=== PATIENT | female | born 1935 | race Caucasian/White ===

== ENCOUNTER 2019-05-25 12:27 | Inpatient (IN) ==
--- NOTE | 2019-05-25 13:16 | PROVIDER DOCUMENTATION ---
HPI-General Adult - General Chief Complaint: Hip Injury Stated Complaint: fall, hip pain Time Seen by Provider: 05/25/19 12:34 Source: patient Allergies/Adverse Reactions: Patient Allergies Allergy/AdvReac Type Severity Reaction Status Date / Time No Known Allergies Allergy Verified 10/12/16 20:31 Home Medications: Home Medication List Medication Instructions Recorded Confirmed Last Taken Type Cephalexin [Keflex] 500 mg PO BID #14 capsule 10/12/16 Unknown Rx - History of Present Illness -Gen Adult Nature of Presenting Problems: Pt. is 83 yof that presents with c/o tripping and falling this morning. Pt. rep orts pain to the left hip. She denies any other injury and denies taking any blood thinners. Location of Pain/Injury: reports: pelvis (Left hip). denies: none, head, face, mouth, neck, chest, upper extremity, hand(s), abdomen, back, genitalia, lower extremity, feet, upper body, lower body, generalized, other Pain Radiation: reports: no radiation. denies: arm(s), back, buttocks, chest, epigastric, feet, groin, jaw, flank (L), legs (lower), LLQ, LUQ, neck, periumbilical, flank (R), RLQ, RUQ, shoulder(s), scapula, scrotal, sternal notch, suprapubic, legs (upper), urethral, vaginal, other Quality of Pain: reports: aching. denies: burning, pressure, tightness Severity: reports: moderate. denies: mild, severe Onset/Duration: reports: abrupt, just prior to arrival Timing: reports: still present. denies: improving, intermittent, getting worse Context/Activities at Onset: reports: light activity, recent trauma history. denies: none, moderate activity, vigorous activity, recent emotional stress, recent physical stress, possible bad food, cold exposure, eating, out of country travel, rest, sleep, sexual activity, other Modifying Factors: improves with: immobilization. worse with: movement, palpation Associated Symptoms: reports: joint pain (Left hip). denies: denies symptoms, anxiety, arm pain, back/neck pain, chest pain, constipation, cough, diaphoresis, diarrhea, dizziness, EENT symptoms, fatigue, fever/chills, genitourinary problems, headaches, heartburn, loss of appetite, malaise, muscle aches, sinus congestion/drainage, nausea, rash, seizure, shortness of breath, sensory/motor loss, pain with inspiration, swelling/mass in abdomen, syncope, vomiting, weakness, trouble walking, other Similar Symptoms Previously?: No Recently seen or treated by another doctor?: No Review of Systems - Adult - REVIEW OF SYSTEMS - ADULT Constitutional: reports: no symptoms reported Eyes: reports: no symptoms reported Ears, Nose, Mouth & Throat: reports: no symptoms reported Cardiovascular: reports: no symptoms reported Respiratory: reports: no symptoms reported Gastrointestinal: reports: no symptoms reported Genitourinary: reports: no symptoms reported Musculoskeletal: reports: see HPI, joint pain (Left hip). denies: back pain, joint swelling, neck pain Integumentary: reports: no symptoms reported Neurological: reports: no symptoms reported Psychiatric: reports: no symptoms reported Past History - Adult - PAST MEDICAL HISTORY-ADULT Review of Records: reports: Old Records Reviewed, Nursing Assessment Review, Medications Reviewed, Social history reviewed & non-contributory. - IMMUNIZATION STATUS Childhood Immunizations: See Nurse Assessment Flu Vaccine: See Nurse Assessment - FAMILY HISTORY Family History: reviewed, not pertinent - SOCIAL HISTORY Smoking: denies Physical Exam-General - PHYSICAL EXAM-ADULT Initial Vital Signs Reviewed: Yes - CONSTITUTIONAL General Appearance: alert, mild distress. negative: anxious, obtunded, combative - EYES Eyes: PERRL/EOMI, pink conjunctivae - HEAD, EARS, NOSE, MOUTH & THROAT HENMT: normocephalic/atraumatic, moist mucous membranes - NECK Neck: non-tender, full range of motion, supple, normal inspection - RESPIRATORY Respiratory: lungs clear, normal breath sounds - CARDIOVASCULAR Cardiovascular: normal peripheral pulses, regular rate, rhythm, no edema - GASTROINTESTINAL (ABDOMEN) Abdominal Exam: normal bowel sounds, non tender, soft - LYMPHATIC Lymphatic: no adenopathy - MUSCULOSKELETAL Back Exam: normal inspection, no CVA tenderness, no vertebral tenderness Extremity: tenderness (Left hip with left leg shortened without rotation.). negative: erythema, inflammation, swelling Peripheral Pulses: radial (R): 2+, radial (L): 2+ - SKIN Integumentary: normal color, normal turgor, warm/dry - NEUROLOGIC Neurologic: grossly normal, no motor/sensory deficits - PSYCHIATRIC Psych/Mental Status: normal mood/affect, normal thought content, normal thought process, oriented x 3. negative: anxious, paranoid, tearful Progress - PLAN OF CARE/RESULTS Progress/Plan/Lab Results: Vital Signs - 8 hr 05/25/19 12:43 Temperature 97.5 F L Pulse Rate 99 H Respiratory Rate 18 Blood Pressure 163/79 O2 Sat by Pulse Oximetry 88 L Orders Category Date Time Status CHEST-1 VIEW [RAD] Stat Exams 05/25/19 13:12 Ordered XRAY PELVIS W/HIP 2-3VW LT [RAD] Stat Exams 05/25/19 12:38 Ordered Result Diagrams: 05/25/19 14:20 05/25/19 14:20 - XRAY 1 XRAY: Left XRAY Study: Pelvis, Hip ([facility] - [address], [address], [place] [address] [facility] - [address] [place] [address] Department of Imaging Patient: SAVANNA MCGHEE Date: 05/25/19#: [id number] : 1936ADM Status: PRE ERAcct#: [id number] Age/Sex: 83/FRoom/Bed: Loc: ED Ordering Physician: Anuel Wellington Family Physician: Stacy Logan MD Reason for Procedure: Fall with injury Signed EXAM: XRAY PELVIS W/HIP 2-3VW LT 05/25/2019 HISTORY: Fall with injury TECHNIQUE: AP pelvis and left hip two views COMMENT: There is a fracture of the femoral neck on the left. This was not the case on 04/17/2019. No other acute bony abnormalities are present. IMPRESSION: Fracture left femoral neck. Electronically signed by Pedro Arshad 05/25/2019 1:32 PM 05/25/19 1332 Interpreting Physician: Pedro Arshad MD Dictated Date/Time: 05/25/19 1331 cc: Anuel Wellington; Stacy Logan MD) XRAY Interpretation: See note - CONSULTS/PCP/HOSPITALIST Notification #1 *Consult/PCP/Hospitalist*: Dr. Mccracken Time Discussed: 13:44 Reason/Comments: Consult Consult Disposition: other (Admit to hospitilist and NPO after midnight.) #2 Consult: Diana for Hospitilist Time Discussed: 15:18 Reason/Comments: Admission Consult Disposition: Will see in ED, Admit Departure - Departure Date of Disposition Decision: 05/25/19 Time of Disposition Decision: 13:38 DIAGNOSIS: Renal insufficiency Hip fracture Qualifiers: Encounter type: initial encounter Fracture type: closed Laterality: left Qualified Code(s): S72.002A - Fracture of unspecified part of neck of left femur, initial encounter for closed fracture Disposition: ADMITTED INPATIENT 09 Certified Medical Emergency: Emergent Condition: Stable Referrals and Follow-Ups: Stacy Logan MD [Primary Care Provider] - - Critical Care Note This patient required my direct & personal management of CC.: No Attestation - Physician/ BLADE Attestation Patient care was provided by Advanced Practice Provider:: Yes Advanced Practice Provider:: Anuel Wellington Advanced Practice Provider documentation review:: The Mid-level provider documentation, treatment plan and medical decision making was reviewed by the physician who agrees with all treatment and medical decision making by the P. The physician spent face to face time with patient:: No Advanced Practice Provider documentation review:: Supervising physician onsite and consulted in the evaluation and care of this patient. The physician did not have a face to face encounter with the patient.
--- NOTE | 2019-05-25 13:34 | Diag Imaging Result Doc PS360 ---
EXAM: XRAY PELVIS W/HIP 2-3VW LT 05/25/2019 HISTORY: Fall with injury TECHNIQUE: AP pelvis and left hip two views COMMENT: There is a fracture of the femoral neck on the left. This was not the case on 04/17/2019. No other acute bony abnormalities are present. IMPRESSION: Fracture left femoral neck. Electronically signed by Pedro Arshad 05/25/2019 1:32 PM
--- NOTE | 2019-05-25 13:41 | Diag Imaging Result Doc PS360 ---
EXAM: CHEST-1 VIEW 05/25/2019 HISTORY: low 02 sat TECHNIQUE: AP portable semiupright at 1333 COMMENT: There is COPD. There are ill-defined opacities in both upper lobes. The heart size is slightly enlarged and the pulmonary vascularity is prominent. There is a granuloma in the lingula. There are no previous studies. IMPRESSION: The possibility of mild bronchopneumonia cannot be excluded. COPD. Electronically signed by Pedro Arshad 05/25/2019 1:39 PM
[2019-05-25] MEDS ORDERED: ZOFRAN IV ONE (13:44)
[2019-05-25] MEDS ORDERED: MORPHINE IV ONE (13:44)
[2019-05-25 14:47] LABS: BASO# 0.01 X1000 (0.0-0.2); BASO% 0.1 % (0.0-0.8); EOS# 0.01 X1000 (0.0-0.7); EOS% 0.1 % (0.0-10.0); HEMATOCRIT 46.7 % (37.0-47.0); HEMOGLOBIN 15.4 g/dL (12.0-16.0); LYMPH% 7.2 % (20.5-51.1); MCH 28.3 PG (27-31); MCV 85.7 FL (81-99); MONO# 0.69 X1000 (0.11-0.59); MONO% 5.5 % (1.7-9.3); MPV 10.4 FL (7.4-10.4); NEUT# 10.97 X1000 (1.4-6.5); NEUT% 87.1 % (42.2-75.2); PLT 160 X1000 (130-400); RBC 5.45 XMIL (4.2-5.4); RDW 14.6 % (11.5-14.5); WBC 12.58 X1000 (4.8-10.8)
[2019-05-25 14:48] LABS: PROTIME 13.3 Seconds (11.0-16.0)
[2019-05-25 14:49] LABS: PTT 27.9 Seconds (22.3-41.8)
[2019-05-25 14:58] LABS: ALB/GLOB RATIO 1.4; CALCIUM 9.3 mg/dL (8.8-10.2); CREATININE 1.1 mg/dL (0.5-0.9); POTASSIUM 5.2 mmol/L (3.5-5.1); TOTAL BILIRUBIN 0.87 mg/dL (0.20-1.00); TOTAL PROTEIN 6.9 g/dL (6.3-8.3)
[2019-05-25 15:02] LABS: URINE SOURCE CATH
[2019-05-25 15:04] LABS: BILIRUBIN URINE NEGATIVE (NEGATIVE); BLOOD URINE TRACE (NEGATIVE); COLOR YELLOW; GLUCOSE URINE NEGATIVE (NEGATIVE); KETONE URINE NEGATIVE (NEGATIVE); LEUKOCYTES URINE NEGATIVE (NEGATIVE); NITRITE URINE NEGATIVE (NEGATIVE); PROTEIN URINE TRACE mg/dL (NEGATIVE); SP GRAVITY URINE 1.018; TURBIDITY URINE CLEAR (CLEAR); UR EPITHELIAL CELLS <10 /HPF (<10); URINE BACTERIA 1+ /HPF; URINE RBC <10 /HPF (<10); URINE WBC <10 /HPF (<10); UROBILINOGEN URINE NORMAL (NORMAL)
[2019-05-25] MEDS ORDERED: NS 1,000 ML IV SCH (15:15)
[2019-05-25 15:18] LABS: CK INDEX 2.8 (0.0-2.5); CK-MB 5.1 ng/mL (0.0-5.0)
[2019-05-25] MEDS ORDERED: ZOFRAN IV PRN (15:29)
[2019-05-25] MEDS ORDERED: TYLENOL PO PRN (15:29)
--- NOTE | 2019-05-25 17:35 | Diag Imaging Result Doc PS360 ---
EXAM: CT THORAX W/O CONTRAST 05/25/2019 HISTORY: possible bronchopneumonia TECHNIQUE: This exam was performed using automated exposure control, adjustment of mA or kV according to patient size, and/or use of iterative reconstruction technique. COMMENT: There are nonspecific mediastinal nodes. There our calcified nodes in the left hilum. There is extensive coronary calcification. There is a pericardial effusion measuring 7 to 8 mm in thickness anteriorly. There is a hiatal hernia. There is a very small left pleural effusion. There is scoliosis of the thoracic spine with convexity to the right. There is bullous emphysema. There is atelectasis versus fibrosis in the right middle lobe and to some extent in the lingula. The right middle lobe is largely collapsed. This may be chronic. IMPRESSION: COPD. Atelectasis of the right middle lobe. Electronically signed by Pedro Arshad 05/25/2019 5:32 PM
[2019-05-25] MEDS: MORPHINE IV PRN (18:53)
[2019-05-25] MEDS: NS 1,000 ML IV SCH (18:53)
--- NOTE | 2019-05-25 21:07 | HISTORY AND PHYSICAL ---
ADDENDUM: I have seen and examined Ms. Michaud today. Ms. Michaud is an 83-year-old female who has no apparent chronic medical conditions, presented to the emergency room after she sustained a mechanical fall entangling her feet at the bathroom, fell and sustained a trauma to the left hip. She was not immediately able to get up. She laid down until her [id number] came to see her today. Upon presenting to the emergency room, she was found to be quite dry on the mucous membrane and upon presenting to the emergency room investigations including an x-ray of the hip showed a fracture to the left femoral neck. The patient is being admitted for further medical and orthopedic intervention. CURRENT VITALS: Have been reviewed. Blood pressure is 150/69, pulse of 81, respirations 19, temperature 98.0 degrees. PHYSICAL EXAM: GENERAL: Is positive for an elderly lady. BMI is 19.7. She does not look to be in any distress. HEENT: Mucosa is pink, slightly dry. Anicteric. Acyanotic. NECK: Neck is supple. CHEST: Good air entry bilaterally. There was no crepitations. No rhonchi. CARDIOVASCULAR: Regular rate and rhythm. ABDOMEN: Is soft, minimally distended in the lower abdomen. There is an old infraumbilical surgical scar. Bowel sounds present. EXTREMITIES: No pedal edema. DEVELOPMENT EDITOR: Patient is awake, alert, oriented. MUSCULOSKELETAL: The left lower extremity is externally rotated, slightly shorten. It is tender to mobilized. LABORATORY DATA: Has also been reviewed. She has a hemoglobin of 15.4. I think she is probably slightly hemoconcentrated. BUN is 27, creatinine is 1.7, and potassium is 5.2. IMAGING STUDIES: Have been reviewed. ASSESSMENT: 1. Status post mechanical fall resulting into trauma to the left hip, which resulted into a left femoral neck fracture. The patient is going to be admitted for Orthopedics to evaluate and intervene if necessary. 2. Clinical volume depletion. 3. Acute kidney injury, most likely from intravascular depletion. 4. Suspected undiagnosed asymptomatic chronic obstructive pulmonary disease. 5. Remote history of previous smoking habit. PERIOPERATIVE EVALUATION: Ms. Michaud is 83 years old. No cor morbidities except possible undiagnosed and asymptomatic COPD. Chest x-ray does not show any acute abnormalities. I have not seen any EKG. Laboratory data have all been reviewed. She denies any chronic heart, lung, kidney or liver disease and she is not on any blood thinner. We think Ms. Michaud is a moderate risk patient for a moderate risk nonvascular intervention. I think the surgery is eminent to preserve her functionality. We recommend surgery to proceed if her EKG is unremarkable. Please refer to the details of the history and physical that has been dictated by the SOFTBALL CORE MOLDER in the chart. I have discussed the plan with her. I have also discussed my findings and the plans with Ms. Michaud and her [id number] who was at the bedside at the time of the encounter. cc: Pan Dwyer MD
--- NOTE | 2019-05-25 23:09 | HISTORY AND PHYSICAL ---
PRIMARY CARE PROVIDER: Dr. Stacy Logan. CHIEF COMPLAINT: Fall. HISTORY OF PRESENT ILLNESS: Ms Michaud is an 83-year-old female who really claims no past medical history apart from glaucoma. Reports that she was an ex-smoker many years ago for about 25 years. She reported she was using the restroom. She got up to pull up her clothing, got tangled up and fell on her left side, had immediate left hip pain. She did not hit her head. There was no loss of consciousness. She was brought into the ED. Imaging showed a left femoral neck fracture. She denies any recent illness. No headache. No fever. No chills. No cough. No shortness of breath. No chest pain. No palpitations. No abdominal pain. No dizziness. No syncope. No issues with urination. We will admit her to the surgical telemetry floor, make her NPO after midnight and clear her for surgery in the a.m. PAST MEDICAL HISTORY: Glaucoma. Chest x-ray does show COPD. PAST SURGICAL HISTORY: Ovary cyst removal. FAMILY HISTORY: Reviewed, noncontributory. 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 She is an ex tobacco smoker of about 25 years. I believe she has had a pack per day for 25 years. REVIEW OF SYSTEMS: Twelve-point review of systems completely negative except for those mentioned in HPI. PHYSICAL EXAMINATION: VITAL SIGNS: Temperature is 98 degrees, heart rate 81, respirations 19, blood pressure 150/69, O2 is 97% on 2 L nasal cannula. GENERAL: Ms. Michaud is a pleasant 83-year-old female who is sitting on the bedside about to receive her echocardiogram in no acute distress. HEENT: Atraumatic, normocephalic. PERRL. NECK: Supple. Trachea midline. CARDIOVASCULAR: S1, S2 appreciated. RESPIRATORY: Lung sounds clear. GASTROINTESTINAL: Soft, nontender, nondistended. Positive bowel sounds 4 quadrants. EXTREMITIES: Lower extremities negative for edema. NEUROLOGIC: No focal deficits noted. She is awake, alert, oriented and answers all questions appropriately. DIAGNOSTIC DATA: Hip and pelvis x-ray showed a fracture of the left femoral neck. Chest x-ray, the possibility of mild bronchopneumonia could not be excluded, COPD. LABORATORY DATA: White count 12, hemoglobin and hematocrit 15 and 46, platelet count is 160,000. Sodium 139, potassium 5.2, BUN 27, creatinine 1.1, blood glucose is 109. ProBNP 1023. ASSESSMENT AND PLAN: 1. Status post mechanical fall with a left femoral neck fracture. We will provide p.r.n. pain regimen, antiemetics. Consult Orthopedics. We will make her NPO after midnight. We will check an EKG as well as echocardiogram to clear her for surgery in the a.m. 2. Chronic obstructive pulmonary disease is evident on chest x-ray. Patient does not take any bronchodilators or have any shortness of breath though she was an ex-smoker. 3. Mildly elevated proBNP. We will check an echocardiogram just to clear her for surgery in the a.m. 4. Acute kidney injury. We will gently hydrate her overnight, recheck her creatinine in the a.m. 5. Mild hyperkalemia. We will gently hydrate her overnight. Recheck potassium in the morning. 6. Leukocytosis possibly reactive to her left hip fracture. Her chest x-ray did show possibility of a bronchopneumonia. However, she is denying any fever, chills, or coughing up anything. We will check a CT of the chest just to rule out anything before surgery. 7. Glaucoma. We will continue on eyedrops when verified. 8. Further recommendation to follow physician evaluation, laboratory and diagnostic data. Dictated by PHILLIP Vidal for Pan Dwyer MD cc: Pan Dwyer MD
[2019-05-26] MEDS: MORPHINE IV PRN (06:37)
[2019-05-26] MEDS: NS 1,000 ML IV SCH (06:37)
--- NOTE | 2019-05-26 07:26 | EKG Report ---
Test Performed on : 05/25/2019 6:45:20 PM Test Reason : admit Blood Pressure : / mmHG Vent. Rate : 076 BPM Atrial Rate : 076 BPM P-R Int : 166 ms QRS Dur : 080 ms QT Int : 382 ms P-R-T Axes : 092 -12 070 degrees QTc Int : 429 ms Normal sinus rhythm. Septal infarct , age undetermined Abnormal ECG No previous ECGs available Unconfirmed Result
--- NOTE | 2019-05-26 07:38 | Diag Imaging Result Doc PS360 ---
EXAM: CHEST-PORTABLE INDICATION: preop TECHNIQUE: One view COMPARISON: 05/25/2019 FINDINGS: COPD changes are again noted. There is stable mild chronic interstitial thickening bilaterally. No new consolidations are identified. Cardiac silhouette is stable. IMPRESSION: Stable chest. Electronically signed by Ian Contreras 05/26/2019 7:36 AM
[2019-05-26 07:55] LABS: BASO# 0.02 X1000 (0.0-0.2); BASO% 0.3 % (0.0-0.8); EOS# 0.11 X1000 (0.0-0.7); EOS% 1.4 % (0.0-10.0); HEMATOCRIT 40.5 % (37.0-47.0); HEMOGLOBIN 12.9 g/dL (12.0-16.0); LYMPH# 0.86 X1000 (1.2-3.4); LYMPH% 10.9 % (20.5-51.1); MCHC 31.9 g/dL (33-37); MONO# 0.57 X1000 (0.11-0.59); MONO% 7.3 % (1.7-9.3); MPV 10.9 FL (7.4-10.4); NEUT% 80.1 % (42.2-75.2); PLT 142 X1000 (130-400); RDW 14.6 % (11.5-14.5); WBC 7.86 X1000 (4.8-10.8)
[2019-05-26 08:09] LABS: ALB/GLOB RATIO 1.3; ALBUMIN 3.4 g/dL (3.5-5.0); CALCIUM 8.4 mg/dL (8.8-10.2); CREATININE 1.1 mg/dL (0.5-0.9); MAGNESIUM 1.6 mg/dL (1.5-2.7); POTASSIUM 4.6 mmol/L (3.5-5.1); TOTAL BILIRUBIN 1.03 mg/dL (0.20-1.00)
[2019-05-26] MEDS ORDERED: KEFZOL 1 GM/D5W 1 GM/50 ML IVPB IV ONE (10:08)
--- NOTE | 2019-05-26 10:23 | ORTHOPAEDICS CONSULTATION ---
DATE: 05/26/2019 CHIEF COMPLAINT: Left femoral neck fracture. HISTORY OF PRESENT ILLNESS: Ms Michaud is an 83-year-old female with no known past medical history with the exception of glaucoma. She was using the restroom yesterday at approximately 4:30 a.m., and when she stood up and attempted to pull up her clothing, she got tangled and fell on her left side. She developed immediate pain to this left hip. She did not hit her head. Denies any loss of conscious. She was evaluated in the emergency department where imaging revealed a left femoral neck fracture. She has been admitted to the floor for medical management and Orthopedics has been consulted to evaluate this left femoral neck fracture. PAST MEDICAL HISTORY: Glaucoma. She denies any other known past medical history. PAST SURGICAL HISTORY: Ovarian cyst removal approximately 30 to 45 years ago. FAMILY HISTORY: Noncontributory. SOCIAL HISTORY: She lives at home with her son. She does use a cane to ambulate and states that this cane is for gait purposes only. She does have a walker, but does not use it. She is an ex- smoker of about 25 years. REVIEW OF SYSTEMS: A 12-point review of systems is negative except as mentioned in the HPI. She denies any chest pain, palpitations, fever, cough, other URI symptoms, or syncope. PHYSICAL EXAMINATION: General: Ms. Michaud is lying in bed at this time in no acute distress. She has a family member at bedside. Her head is atraumatic and normocephalic. Respiratory: Rate is nonlabored. Extremities: She is noted to have dry skin on her bilateral lower extremities. She is able to dorsiflex and plantar flex her bilateral feet, though weakly. She is able to wiggle her toes. Her sensation is intact distally. She has only very mild swelling to her left hip, and this area is tender to palpation. She is not shortened nor externally rotated. IMAGING: Hip and pelvis x-ray revealed a fracture of the left femoral neck. Her chest x-ray also showed the possibility of mild bronchopneumonia that could not be excluded and COPD. LABORATORY DATA: Her most recent labs reveal a white count of 7.86 and a creatinine of 1.1. ASSESSMENT AND PLAN: Status post mechanical fall with a left femoral neck fracture. Dr. Vazquez will be taking Ms. [place] to the operating room today for a left hemiarthroplasty of the left hip. She has been nothing by mouth since midnight last night. All questions were answered this morning. Dr. Vazquez will be up to review risks and benefits of surgery including, but not limited to , infection, nerve injury, bleeding, and blood clots. Family wishes to proceed with surgery at this time. Dictated by PHILLIP Chaves for Giovany Vazquez MD cc: Giovany Vazquez MD
[2019-05-26] MEDS ORDERED: DIPRIVAN 1% ONE (12:55)
[2019-05-26] MEDS ORDERED: FENTANYL ONE (12:55)
[2019-05-26] MEDS ORDERED: KEFZOL 1 GM/D5W 1 GM/50 ML IVPB ONE (12:59)
[2019-05-26] MEDS ORDERED: SENSORCAINE 0.5%-EPI 1:200,000 ONE (13:11)
[2019-05-26] MEDS ORDERED: TORADOL ONE (13:11)
[2019-05-26] MEDS ORDERED: CYKLOKAPRON 1,000 MG/NS 1,000 MG/100 ML IVPB ONE (13:11)
[2019-05-26] MEDS ORDERED: DURAMORPH ONE (13:11)
[2019-05-26] MEDS ORDERED: NEOSPORIN G.U. IRRIGANT ONE (13:12)
[2019-05-26] MEDS ORDERED: EXPAREL 1.3% ONE (13:12)
[2019-05-26] MEDS ORDERED: SODIUM CHLORIDE 0.9% ONE (13:12)
[2019-05-26] MEDS ORDERED: SENSORCAINE 0.25%/EPI 1:200,000 ONE (13:13)
--- NOTE | 2019-05-26 13:50 | ECHO REPORT ---
ORDER DATE: 05/25/2019 INDICATION: Preoperative evaluation of the left hip. FINDINGS: 1. The right atrium appears enlarged. 2. Mild to moderate tricuspid regurgitation. RV systolic pressure of 49 suggesting pulmonary hypertension. 3. Mild enlargement of the right ventricle with normal RV systolic function. 4. No significant pulmonic insufficiency. 5. Mild left atrial enlargement with a volume index of 34. 6. No mitral valve prolapse. Mild mitral regurgitation. No evidence of mitral stenosis. 7. Normal LV size, end-diastolic dimension of 3.6 cm. Mild left ventricular hypertrophy with a posterior and interventricular septal wall thickness of 1.0 and 1.2 cm respectively. Normal LV systolic function with an estimated ejection fraction of 65% to 70% with normal wall motion. 8. The aortic valve appears calcified with restriction in motion consistent with mild aortic stenosis. Peak gradient across the valve is 31 with a mean of 13. The valve area is 1.6 cm2 by the continuity equation. Mild aortic insufficiency. 9. Aorta appears normal in visualized segments. 10. No pericardial effusion was seen. cc: Evert Banks MD
[2019-05-26] MEDS ORDERED: ZOFRAN ONE (14:34)
[2019-05-26] MEDS ORDERED: DECADRON ONE (14:34)
[2019-05-26] MEDS ORDERED: OFIRMEV 1000 MG/ISOTONIC SOLN 1,000 MG/100 ML BOTTLE ONE (14:34)
[2019-05-26] MEDS ORDERED: NS 1,000 ML ONE (15:32)
[2019-05-26] MEDS ORDERED: MILK OF MAGNESIA PO PRN (15:45)
[2019-05-26] MEDS ORDERED: MORPHINE IV PRN ×3 (15:45)
[2019-05-26] MEDS ORDERED: OXY IR PO PRN (15:45)
[2019-05-26] MEDS ORDERED: ZOFRAN ODT PO PRN (15:45)
[2019-05-26] MEDS ORDERED: NS 1,000 ML IV SCH (15:45)
[2019-05-26] MEDS ORDERED: ZOFRAN IV PRN (15:45)
[2019-05-26] MEDS ORDERED: ULTRAM PO PRN (15:46)
--- NOTE | 2019-05-26 18:22 | PROGRESS NOTE ---
DATE: 05/26/2019 SUBJECTIVE: I have seen and examined Ms. Michaud today. She had about 4 different family members at the bedside at the time of the encounter. Ms. Michaud was actually sleeping but was easily arousable, said she was doing well. I understand she was hurting early on and had to be given pain medicine. OBJECTIVE: Vital signs: Blood pressure is 140/54, pulse of 71, respirations 16, temperature is 98 degrees. Patient is saturating 96% on 2 L. General: Ms. Michaud is an 83-year-old elderly female. She is in bed. HEENT: Mucosa is pink and moist. Anicteric. Acyanotic. Neck: Supple. Chest: Air entry is bilaterally reduced. There is still some distant wheezing in both lung schneider. Cardiovascular: Regular rate and rhythm. Gastrointestinal: Abdomen was soft. There is an old infraumbilical scar. Extremities: No pedal edema. Central nervous system: Patient is sleeping but easily arousable. Tenderness in mobilizing the left lower extremity at the hip level. LABORATORY DATA: WBC is 7.86, hemoglobin is 12.9, platelet count of 142,000. Chemistry is also reviewed. Creatinine is 1.1. Rest of chemistry is unremarkable. CURRENT MEDICATIONS: Have all been reviewed. No changes. ASSESSMENT: 1. Status post mechanical fall resulting into a left femoral neck fracture. The patient has been evaluated by Orthopedics today. There is a plan to intervene surgically later today. 2. Clinical volume depletion. We will continue with gentle hydration. 3. Acute kidney injury. 4. Undiagnosed advanced chronic obstructive pulmonary disease. The patient seems to be quite asymptomatic from chronic obstructive pulmonary disease standpoint. 5. Remote history of smoking in the past. 6. Constipation. The patient has been started on bowel regimen. PLAN: In general, I think Ms. Michaud is doing well. She is pending orthopedic intervention this afternoon. After that, we will wait for orders from Orthopedics about when physical therapy can be started. Ms. Michaud will eventually be needing to go to rehab. They have made a choice to go to [facility]. Social Work is aware. cc: Pan Dwyer MD
[2019-05-26] MEDS: TYLENOL PO SCH (20:11)
--- NOTE | 2019-05-26 21:19 | OPERATIVE NOTE ---
PROCEDURE DATE: 05/26/2019 PREOPERATIVE DIAGNOSIS: Left displaced femoral neck fracture. POSTOPERATIVE DIAGNOSIS: Left displaced femoral neck fracture. PROCEDURE PERFORMED: Left bipolar hemiarthroplasty using a DePuy Actis size 7 standard offset, +5 neck length with a 28 mm x 20 mm head and a 46 mm bipolar head. ANESTHESIA: Spinal. SURGEON: Giovany Vazquez MD. DEICER INSPECTOR PNEUMATIC: PHILLIP Chaves who was present throughout the case. Her assistance was critical for successful completion of the case. BLOOD LOSS: Minimal. DESCRIPTION OF PROCEDURE: The patient was brought to the operative suite and placed in supine position after successful administration of general anesthesia. The patient was placed on the OSI table in the usual position for left hip. The left hip was then prepped and draped in usual sterile fashion. A longitudinal incision was made beginning 3 cm distal and 3 cm lateral to the anterior superior iliac spines and extending distally and slightly laterally 8 cm, dissected sharply through skin and subcutaneous tissue to the tensor fascia. The tensor fascia was incised and dissected bluntly down to deep tensor fascia. Deep tensor fascia was incised, and circumflex vessels electrocauterized exposing the anterior capsule. A T capsulotomy was performed exposing the femoral neck. The femoral neck cut was made with oscillating saw. The femoral neck and head were removed with a power corkscrew. The head was measured to a 46. A 46 trial was found to be an excellent fit. Attention was then directed to the femur. It was externally rotated, extended, adducted, and elevated out of the wound with the hook on the OSI bed. The lateral neck was rongeured. The canal was serially broached to a size 7. It was then calcar planed and then a size 7 standard offset +5 neck length was trialed and found to be excellent leg length, excellent fit and fill of the stem, excellent offset and stability of the hip. The trial was then removed. DePuy Actis size 7 standard offset stem was then locked into place on the femur and then the 28 mm head with a 46 mm bipolar was locked onto the Humphrey taper, and then the hip was again reduced. It was again found to be in excellent position. The anterior capsule was repaired with 0 V-Loc. The hip was copiously infiltrated with Exparel including the posterior capsule, anterior capsule, intramuscular and subcutaneous tissue. The hip was copiously irrigated with normal saline containing irrigant and Vashe irrigation. Then the tensor fascia was closed with a running 0 V- Loc suture. Skin edge was approximated with 2-0 Vicryl, closed with 4-0 Monocryl and a Prineo dressing. The patient tolerated the procedure well without complication. At the end of the procedure, all counts were correct x2. The patient was transferred to the recovery room in stable condition. cc: Giovany Vazquez MD
[2019-05-26] MEDS: COLACE PO SCH (22:12)
[2019-05-26] MEDS: PERIDEX MT SCH (22:12)
[2019-05-27] MEDS: TYLENOL PO SCH ×4 (02:55→22:06)
[2019-05-27 07:00] LABS: HEMATOCRIT 41.3 % (37.0-47.0); HEMOGLOBIN 13.2 g/dL (12.0-16.0)
[2019-05-27 07:54] LABS: CALCIUM 8.4 mg/dL (8.8-10.2); CREATININE 1.1 mg/dL (0.5-0.9); POTASSIUM 4.6 mmol/L (3.5-5.1)
[2019-05-27] MEDS: MIRALAX PO SCH (09:40)
[2019-05-27] MEDS: COLACE PO SCH ×2 (09:41→22:06)
[2019-05-27] MEDS: LOVENOX SUBQ SCH (09:41)
[2019-05-27] MEDS: PERIDEX MT SCH ×2 (09:41→22:05)
[2019-05-27] MEDS: CELEBREX PO SCH (09:41)
[2019-05-27] MEDS: PEPCID PO SCH (09:41)
[2019-05-27] MEDS: OXY IR PO PRN ×3 (09:43→22:05)
--- NOTE | 2019-05-27 15:06 | ORTHOPAEDICS PROGRESS NOTE ---
DATE: 05/27/2019 SUBJECTIVE: Jahaira Michaud is an 83-year-old female who is postoperative day 1 from a left bipolar hemiarthroplasty. She has no complaints. OBJECTIVE: She is a well-developed, well-nourished female. She is alert, oriented, and cooperative exam. Her wound is clean, dry, intact. She can move her hip with minimal discomfort. LABORATORY: Her hematocrit is 13.2. Her hemoglobin is 41.3. ASSESSMENT: Stable left bipolar hemiarthroplasty. PLAN: We will begin physical therapy with her today. She will be weightbearing as tolerated. She can hopefully go to rehab in the next few days, likely . cc: Giovany Vazquez MD
--- NOTE | 2019-05-28 00:10 | PROGRESS NOTE ---
DATE: 05/27/2019 SUBJECTIVE: The patient has no major complaints. OBJECTIVE: Blood pressure 127/59, heart rate 60, respiratory 14, temperature 97.9 degrees, 93% on 2 L.Cardiovascular: Regular rate and rhythm. Pulmonary: Bilateral breath sounds, diminished at bases. GI: Soft, nontender, nondistended. Bowel sounds are positive. LABORATORY DATA: Hemoglobin and hematocrit are 13 and 41, which is actually normal. Basic is okay. Creatinine 1.1, which is stable. ASSESSMENT AND PLAN: 1. Status post mechanical fall, left femoral neck fracture. We will continue to follow. He has had open reduction and internal fixation, and stable. 2. Acute kidney injury, volume depletion. We will continue to follow. 3. Chronic obstructive pulmonary disease, which appears to be compensated. 4. Constipation. Continue bowel regimen. 5. Disposition: We are anticipating discharge soon, hopefully in the next 1-2 days. cc: Brian Dao MD
[2019-05-28] MEDS: OXY IR PO PRN (07:01)
[2019-05-28] MEDS: LOVENOX SUBQ SCH (07:01)
[2019-05-28] MEDS: TYLENOL PO SCH ×3 (07:02→19:25)
[2019-05-28 07:06] LABS: HEMATOCRIT 36.4 % (37.0-47.0); HEMOGLOBIN 11.6 g/dL (12.0-16.0)
[2019-05-28 08:18] LABS: CALCIUM 8.2 mg/dL (8.8-10.2); CREATININE 1.5 mg/dL (0.5-0.9); POTASSIUM 5.3 mmol/L (3.5-5.1)
[2019-05-28] MEDS: COLACE PO SCH (09:16)
[2019-05-28] MEDS: PERIDEX MT SCH (09:16)
[2019-05-28] MEDS: PEPCID PO SCH (09:16)
[2019-05-28] MEDS: CELEBREX PO SCH (09:16)
[2019-05-28] MEDS: MIRALAX PO SCH (09:16)
[2019-05-28] MEDS: NS 1,000 ML IV SCH (19:31)
--- NOTE | 2019-05-28 21:29 | PROGRESS NOTE ---
DATE: 05/28/2019 SUBJECTIVE: The patient has no major complaints. OBJECTIVE: Vital signs: Blood pressure 142/61, heart rate 61, respiratory rate 16, temperature 97.8 degrees. Cardiovascular: Regular rate and rhythm. Pulmonary: Bilateral breath sounds clear to auscultation. Gastrointestinal: Soft, nontender, nondistended. Bowel sounds are positive. LABORATORY DATA: H and H 11 and 36, potassium today 5.3, creatinine of 1.5. PROBLEM LIST: 1. Left femoral neck fracture. We will continue to monitor. Continue PT, DVT prophylaxis. Orthopedics is following. 2. Acute kidney injury is even more acute today. I have stopped her Celebrex because we just need to avoid nephrotoxic drugs. She is not really on anything else. We will continue IV fluids for time being. Check urine electrolytes. DISPOSITION: I anticipate discharge to rehab. At this point we are looking at the next 1 to 2 days. cc: Brian Dao MD
[2019-05-29] MEDS: COLACE PO SCH ×2 (01:06→08:37)
[2019-05-29] MEDS: TYLENOL PO SCH ×3 (01:06→16:27)
[2019-05-29] MEDS: PERIDEX MT SCH ×3 (01:07→21:00)
[2019-05-29] MEDS: LOVENOX SUBQ SCH (06:40)
[2019-05-29 07:12] LABS: HEMATOCRIT 36.5 % (37.0-47.0); HEMOGLOBIN 11.9 g/dL (12.0-16.0)
[2019-05-29] MEDS: NS 1,000 ML IV SCH ×2 (08:03→17:20)
[2019-05-29] MEDS: PEPCID PO SCH (08:37)
[2019-05-29] MEDS: MIRALAX PO SCH (08:37)
--- NOTE | 2019-05-29 16:11 | ORTHOPAEDICS PROGRESS NOTE ---
DATE: 05/29/2019 SUBJECTIVE: Jahaira Michaud is an 83-year-old female who is postoperative day 3 from a left bipolar hemiarthroplasty. She has no complaints. She states her hip does not hurt. OBJECTIVE: She is a well-developed, well-nourished female. She is cooperative with exam. Her wound is clean, dry, and intact. LABORATORY: Her hemoglobin is 11.9, hematocrit is 36.5. She has had minimal ambulation with physical therapy, however. Basically has been bed to chair. ASSESSMENT: Stable left bipolar hemiarthroplasty. PLAN: She will continue to work with physical therapy. She can be discharged to rehab when cleared medically. She will be weightbearing as tolerated on her left lower extremity with no restrictions. cc: Giovany Vazquez MD
[2019-05-29] MEDS: OXY IR PO PRN (16:27)
[2019-05-29] MEDS ORDERED: CATAPRES PO ONE (16:36)
[2019-05-29 17:00] LABS: CALCIUM 8.8 mg/dL (8.8-10.2); CREATININE 1.1 mg/dL (0.5-0.9); POTASSIUM 5.1 mmol/L (3.5-5.1)
[2019-05-29 17:02] LABS: UR CREAT RANDOM 30.2 mg/dL (11-20); UR PROT RANDOM 8.2 mg/dL
--- NOTE | 2019-05-29 20:20 | PROGRESS NOTE ---
DATE: 05/29/2019 SUBJECTIVE: Patient has no major complaints. OBJECTIVE: Blood pressure is 208/62, so not very stable, heart rate 68, respiratory 19, temperature 98.2 degrees.Cardiovascular: Regular rate and rhythm. Pulmonary: Bilateral breath sounds, clear to auscultation. GI: Soft, nontender, nondistended. Bowel sounds were positive. LABORATORY DATA: Her hemoglobin and hematocrit are stable. PROBLEM LIST: 1. Left hip fracture. Creatinine is 1.5. We will continue PT and pain control. 2. Acute kidney injury. She has been on hydration, so we will continue that. Repeat her labs. 3. Hypertension. We will start some Norvasc and we will see how she does. 4. Disposition. Anticipate discharge tomorrow to rehab when bed available. cc: Brian Dao MD
[2019-05-29] MEDS ORDERED: TRAVATAN 0.004% OPH SOLN BOTH EYES SCH (21:00)
[2019-05-30] MEDS: COLACE PO SCH ×2 (03:19→08:38)
[2019-05-30] MEDS: TYLENOL PO SCH ×2 (03:20→06:09)
[2019-05-30] MEDS: LOVENOX SUBQ SCH (06:09)
[2019-05-30] MEDS: PERIDEX MT SCH ×2 (06:09→08:38)
[2019-05-30] MEDS: PEPCID PO SCH (08:38)
[2019-05-30] MEDS: MIRALAX PO SCH (08:39)
[2019-05-30] MEDS ORDERED: NORVASC PO SCH (09:00)
--- NOTE | 2019-05-30 10:54 | DISCHARGE SUMMARY ---
ADMISSION DATE: 05/25/2019 DISCHARGE DATE: 05/30/2019 PRIMARY CARE PHYSICIAN: Dr. Logan. CONSULTATION: Orthopedics. ADMISSION DIAGNOSES: 1. Status post mechanical fall resulting in trauma to the left hip, which resulted into a left neck femoral fracture. 2. Clinical volume depletion. 3. Acute kidney injury most likely from intravascular depletion. 4. Suspected undiagnosed asymptomatic chronic obstructive pulmonary disease. 5. Remote history of previous smoking habit. DISCHARGE DIAGNOSES: 1. Status post left hip fracture repair. 2. Acute kidney injury, resolved. 3. Hypertension. SUMMARY OF FINDINGS: This is an 83-year-old female, who presented to the emergency room after she sustained a mechanical fall entangling her feet in the bathroom, fell and sustained trauma to the left hip. She was not immediately able to get up, laid until her [id number] came to see her. Was found to be quite dry in her mucous membranes. Her x-ray showed a fracture to the left femoral neck, so she was transferred to the [facility] for orthopedic consultation and repair. She did well with her procedure, was hydrated and her kidney injury has resolved. Physical therapy was consulted and has done well. It is now felt that she can safely be discharged to rehab today. DISCHARGE MEDICATIONS: Include Colace 100 mg p.o. b.i.d., Lovenox 40 mg subcutaneous q. 24 hours, Oxy IR 10 mg p.o. q. 3 hours p.r.n., MiraLAX 17 g p.o. daily, Travatan Z one drop to both eyes at bedtime, albuterol nebs q. 4 hours p.r.n., amlodipine 5 mg p.o. daily. FOLLOWUP: She will need to follow up with her primary care physician and with Orthopedics once her rehab stay is completed, and they will set up the times at discharge from there. TIME SPENT: 35 minute discharge. Dictated by PHILLIP Flor for Brian Dao MD cc: PHILLIP Flor MD Kathy J. Sparacino, MD
[2019-05-30 11:06] VITALS: BP 150/56
--- NOTE | 2019-05-30 23:54 | DISCHARGE SUMMARY ---
ADMISSION DATE: 05/25/2019 DISCHARGE DATE: 05/30/2019 The patient is going to be discharged, left hip fracture status post open reduction and internal fixation. She is doing well, sitting up in bed. Exam unremarkable. She still has oxygen requirement but she has underlying COPD, which may have not been yet diagnosed. Her creatinine had bumped up a little bit, possibly due to NSAID but is down to 1.1 on day of discharge, so we feel comfortable letting her go today. Discharge summary has been completed. The Lovenox of note should be for 30 days only or until she is ambulatory. 32 minute discharge. cc: MD Dr. Taylor Perry MD
== END 2019-05-30 15:15 | DRG 470 ==
LOC: SUPCPDRO → ED 12:27 → SUATTDRO 15:24 → EDIPHOLD 15:24 → 4N 18:21
PROVIDERS: ATTEND Internal Medicine